=== PATIENT | female | born 1940 | race Caucasian/White ===

== ENCOUNTER → 2016-10-28 | Outpatient (CLI) | payer MEDICARE, BC ==
--- NOTE | 2016-10-29 13:55 | RADRPT ---
PROCEDURE: XR Pelvis and Hips. CLINICAL INDICATION: Pelvic pain. Bilateral hip pain. TECHNIQUE: Five views. Frontal pelvis. Frontal and lateral right hip. Frontal and lateral left hip. COMPARISON: No prior studies are available for comparison. FINDINGS: There is no fracture or dislocation. The soft tissues are normal. There are degenerative changes with osteophytes arising from the right and left hip joint margins. On the right side, there is joint space narrowing. There are degenerative changes of the lower lumb ar spine and lumbar scoliosis convex left. There is no lytic or blastic lesion. There is no radiopaque foreign body. IMPRESSION: 1. 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 2. Mild degenerative changes of the left hip. 3. Degenerative changes of the lumbar spine and lumbar scoliosis convex left. RPTAT: QQ .Markus Barker MD, Date Time Electronically viewed and signed by .Markus Barker MD, on 10/29/2016 13:54 .R/
--- NOTE | 2016-10-29 18:23 | RADRPT ---
PROCEDURE: Left knee radiographs. CLINICAL INDICATION: Left knee pain. TECHNIQUE: Four views. Weight bearing. Frontal, lateral, oblique, and patellar view. COMPARISON: No prior studies are available for comparison. FINDINGS: There is no fracture or dislocation. The soft tissues are normal. There are degenerative changes with osteophytes arising from all 3 joint compartment margins. There is lateral joint compartment narrowing, subarticular sclerosis, mild deformity. There is no lytic or blastic lesion. There is no radiopaque foreign body. IMPRESSION: 1. 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 2. No acute abnormality. RPTAT: QQ .Markus Barker MD, MD Date Time Electronically viewed and signed by .Markus Barker MD, MD on 10/29/2016 18:23 .R/
== END | disposition home or self-care (01) ==
LOC: HKI 13:27
PROVIDERS: ATTEND Orthopaedic Surgery
DX: M16.11 Unilateral primary osteoarthritis, right hip (principal); M17.12 Unilateral primary osteoarthritis, left knee; M41.26 Other idiopathic scoliosis, lumbar region; M51.36 Other intervertebral disc degeneration, lumbar region; D46.9 Myelodysplastic syndrome, unspecified; K59.00 Constipation, unspecified
CPT/HCPCS: 73523; 73564; G0463